=== PATIENT | male | born 1985 | race Caucasian/White ===

== ENCOUNTER 2020-11-17 18:06 | Emergency (ER) | payer BC ==
[2020-11-17] MEDS ORDERED: MORPHINE SULFATE 4 MG INJ IV ONE ×2 (18:31→20:16)
[2020-11-17] MEDS ORDERED: Sodium Chloride 0.9% 1000 ML 1,000 ML IV STA (18:32)
[2020-11-17] MEDS ORDERED: Sodium Chloride 0.9% 1000 ML 1,000 ML ONE ×2 (18:39→20:00)
[2020-11-17] MEDS ORDERED: MORPHINE SULFATE 4 MG INJ ONE ×2 (18:39→20:10)
[2020-11-17 19:28] LABS: Absolute Neutrophil Ct (ANC) 7.71 (1.4-6.9); BASOPHIL % 0.3 % (0.0-0.4); Basophil (Absolute #) 0.03 (0-0.4); Eosinophil % 1.3 % (0.00-5.0); Eosinophil (Absolute #) 0.15 (0-0.5); Hematocrit 42.6 % (42-50); Hemoglobin 14.5 gm/dl (12.5-18.0); Lymphocytes % 19.4 % (24.0-44.0); Mean Cell Volume 89.9 fl (78-100); Mean Corpuscular Hemoglobin 30.6 pg (26-32); Mean Platelet Volume 10.1 fl (7.5-11.0); Monocyte (Absolute #) 1.23 (0.0-1.3); Monocytes % 10.9 % (0.0-12.0); Neutrophil % 68.1 % (36.0-66.0); Platelet Count 288 K/mm3 (150-450); Red Blood Count 4.74 M/mm3 (4.1-5.6); Red Cell Distribution Width 13.4 % (11.5-14.0); White Blood Count 11.3 K/mm3 (4.0-10.5)
[2020-11-17 19:33] LABS: ALBUMIN 3.9 g/dL (3.5-5.0); ALKALINE PHOSPHATASE 102 U/L (38-126); ANION GAP 11.7 MEQ/L (5-15); BLOOD UREA NITROGEN 7 mg/dL (9-20); CHLORIDE 104 mmol/L (98-107); Calcium 8.8 mg/dL (8.4-10.2); Carbon Dioxide 27 mmol/L (22-30); Creatinine 1 0.63 mg/dL (0.66-1.25); EST GLOMERULAR FILTRATION RATE > 60.0 ML/MIN; Glucose 90 mg/dL (74-106); LIPASE 94 U/L (23-300); SGOT/AST 30 U/L (17-59); SGPT/ALT 32 U/L (0-50); SODIUM 140 mmol/L (137-145); Total Protein 6.7 g/dL (6.3-8.2)
[2020-11-17] MEDS ORDERED: POTASSIUM CHLORIDE 20 mEq IN WATER 100ML 20 MEQ/100 ML BAG IV SCH (19:45)
[2020-11-17] MEDS ORDERED: POTASSIUM CHLORIDE 20 mEq IN WATER 100ML 200 ML IV ONE (19:57)
[2020-11-17] MEDS ORDERED: Sodium Chloride 0.9% 1000 ML 1,000 ML IV SCH (20:00)
[2020-11-17 20:20] LABS: Appearance SLIGHTLY CLOUDY (CLEAR); Bacteria RARE /HPF (NEGATIVE); Bilirubin NEGATIVE (NEGATIVE); Blood LARGE Ery/ul (0-5); Epithelial Cells RARE /HPF (FEW); Glucose NEGATIVE (NEGATIVE); Ketones NEGATIVE (NEGATIVE); Leukocyte Esterase NEGATIVE (NEGATIVE); Mucus SLIGHT /HPF (NEGATIVE); Nitrite NEGATIVE (NEGATIVE); Protein,Urine Dip 30 (Negative); RBC >101 /HPF (0-2); Specific Gravity 1.008 (1.005-1.025); Urobilinogen NEGATIVE mg/dL (0-1)
--- NOTE | 2020-11-17 21:36 | ERPHSYRPT ---
- History of Present Illness Patient Subjective Stated Complaint: Pt states that he got a piece of metal in his abdomen a couple of weeks ago and then today around noon he suddenly had pain in his abdomen that radiated to his groin and to his back Triage Nursing Assessment: Pt brought to the ER by his , hypertensive, rates pain in left lower quadrant/right groin/right back as 6/10, pulses normal, skin n/w/d, reports having blood in stool Allergies/Adverse Reactions: diphenhydramine [From Benadryl] Allergy (Verified 11/17/20 18:28) Home Medications: Phentermine HCl [Adipex-P] 37.5 mg PO DAILY 11/17/20 [History] Travel Risk - International Travel Have you traveled outside of the country in past 3 weeks: No - Coronavirus Screening Are you exhibiting any of the following symptoms?: No Close contact with a COVID-19 positive Pt in past 14-21 Days: No - Vaccine Status Have you recieved a Covid-19 vaccination: No - Review of Systems Constitutional: No Symptoms, No Fever, No Chills Eyes: No Symptoms Ears, Nose, & Throat: No Symptoms Respiratory: No Symptoms, No Cough, No Dyspnea Cardiac: No Symptoms, No Chest Pain, No Edema, No Syncope Abdominal/Gastrointestinal: No Symptoms, No Abdominal Pain, No Nausea, No Vomiting, No Diarrhea Genitourinary Symptoms: No Symptoms, No Dysuria Musculoskeletal: No Symptoms, No Back Pain, No Neck Pain Skin: No Symptoms, No Rash Neurological: No Symptoms, No Dizziness, No Focal Weakness, No Sensory Changes Psychological: No Symptoms Endocrine: No Symptoms Hematologic/Lymphatic: No Symptoms Immunological/Allergic: No Symptoms All Other Systems: Reviewed and Negative - Past Medical History Pertinent Past Medical History: Yes GI Medical History: GERD - Past Surgical History Past Surgical History: Yes Gastrointestinal: Cholecystectomy, Hernia Repair Musculoskeletal: Joint Replacement, Orthopedic Surgery Male Surgical History: Vasectomy Other Surgical History: gastric bypass - Social History Smoking Status: Never smoker Exposure to second hand smoke: No Patient Lives Alone: No - Nursing Vital Signs Nursing Vital Signs: Initial Vital Signs Temperature 98.1 F 11/17/20 18:17 Pulse Rate 67 11/17/20 18:17 Blood Pressure 170/96 11/17/20 18:17 O2 Sat by Pulse Oximetry 93 L 11/17/20 18:17 Pain Scale Pain Intensity 6 - Physical Exam General Appearance: no apparent distress, alert Eye Exam: PERRL/EOMI, eyes nml inspection Ears, Nose, Throat Exam: normal ENT inspection, pharynx normal, moist mucous membranes Neck Exam: normal inspection, non-tender, supple, full range of motion Respiratory Exam: normal breath sounds, lungs clear, No respiratory distress Cardiovascular Exam: regular rate/rhythm, normal heart sounds Gastrointestinal/Abdomen Exam: soft, other (Pain in the right flank into the right groin area. There is a palpable foreign body at the surface likely subcutaneous area just right of the umbilicus. Patient is planning on seeing a general surgeon for further evaluation of this foreign body. No signs of abdominal infection.), No tenderness, No mass Back Exam: normal inspection, normal range of motion, No CVA tenderness, No vertebral tenderness Extremity Exam: normal inspection, normal range of motion, pelvis stable Neurologic Exam: alert, oriented x 3, cooperative, normal mood/affect, nml cerebellar function, sensation nml, No motor deficits Skin Exam: normal color, warm, dry Lymphatic Exam: No adenopathy SpO2 Interpretation: normal SpO2: 97 O2 Delivery: Room Air - Course Nursing assessment & vital signs reviewed: Yes - CT Exams Abdomen/Pelvis CT Interpretation: Tele-radiologist Report (No comparisons. Normal appendix. 2 mm right mid ureteral stone at L4 level. Mild hydronephrosis. Remaining abdomen pelvis negative.) Ordered Tests: Active Orders 24 hr Category Date Time Status IV Insertion STAT Care 11/17/20 19:23 Active ABDOMEN AND PELVIS W CONTRAST [CT] Stat Exams 11/17/20 18:33 Taken CBC W DIFF Stat Lab 11/17/20 19:23 Completed CMP Stat Lab 11/17/20 18:35 Completed CULTURE,URINE Stat Lab 11/17/20 20:16 Received LIPASE Stat Lab 11/17/20 18:35 Completed TROPONIN Q3H Lab 11/17/20 18:35 Completed TROPONIN Q3H Lab 11/17/20 22:30 Ordered TROPONIN Q3H Lab 11/18/20 01:30 Ordered TROPONIN Q3H Lab 11/18/20 04:30 Ordered TROPONIN Q3H Lab 11/18/20 07:30 Ordered UA W/RFX UR CULTURE Stat Lab 11/17/20 20:16 Completed Medication Summary Generic Name Dose Route Start Last Admin Trade Name Freq PRN Reason Stop Dose Admin Potassium Chloride 20 meq in 100 mls @ 50 mls/hr 11/17/20 19:45 11/17/20 20:03 Potassium Chloride 20 Meq In Water 100ml IV 11/17/20 23:44 50 mls/hr Q2H TARA Administration Sodium Chloride 1,000 mls @ 200 mls/hr 11/17/20 20:00 11/17/20 20:03 Sodium Chloride 0.9% 1000 Ml IV 12/17/20 19:59 200 mls/hr .Q5H TARA Administration Discontinued Medications Generic Name Dose Route Start Last Admin Trade Name Isaiah PRN Reason Stop Dose Admin Sodium Chloride 1,000 mls @ 999 mls/hr 11/17/20 18:32 11/17/20 19:42 Sodium Chloride 0.9% 1000 Ml IV 11/17/20 19:32 Infused .Q1H1M STA Infusion Sodium Chloride Confirm 11/17/20 18:39 Sodium Chloride 0.9% 1000 Ml Administered 11/17/20 18:40 Dose 1,000 mls @ ud .ROUTE .STK-MED ONE Ketorolac Tromethamine 30 mg 11/17/20 21:37 11/17/20 21:39 Toradol 30 Mg Injection IV 11/17/20 21:38 30 mg STAT ONE Administration Ketorolac Tromethamine Confirm 11/17/20 21:37 Toradol 30 Mg Injection Administered 11/17/20 21:38 Dose 30 mg .ROUTE .STK-MED ONE Morphine Sulfate 4 mg 11/17/20 18:31 11/17/20 18:41 Morphine Sulfate 4 Mg Inj IV 11/17/20 18:32 4 mg STAT ONE Administration Morphine Sulfate Confirm 11/17/20 18:39 Morphine Sulfate 4 Mg Inj Administered 11/17/20 18:40 Dose 4 mg .ROUTE .STK-MED ONE Morphine Sulfate Confirm 11/17/20 20:10 Morphine Sulfate 4 Mg Inj Administered 11/17/20 20:11 Dose 4 mg .ROUTE .STK-MED ONE Morphine Sulfate 4 mg 11/17/20 20:16 11/17/20 20:17 Morphine Sulfate 4 Mg Inj IV 11/17/20 20:17 4 mg STAT ONE Administration Potassium Chloride 40 meq 11/17/20 21:37 11/17/20 21:39 Klor Con 10 Meq PO 11/17/20 21:38 40 meq STAT ONE Administration Potassium Chloride Confirm 11/17/20 21:37 Klor Con 10 Meq Administered 11/17/20 21:38 Dose 40 meq PO .STK-MED ONE Lab/Rad Data: Laboratory Result Diagrams 11/17/20 19:23 11/17/20 18:35 Laboratory Results 11/17/20 11/17/20 11/17/20 Range/Units 20:16 19:23 18:35 WBC 11.3 H (4.0-10.5) K/mm3 RBC 4.74 (4.1-5.6) M/mm3 Hgb 14.5 (12.5-18.0) gm/dl Hct 42.6 (42-50) % MCV 89.9 (78-100) fl MCH 30.6 (26-32) pg MCHC 34.0 (32-36) g/dl RDW 13.4 (11.5-14.0) % Plt Count 288 (150-450) K/mm3 MPV 10.1 (7.5-11.0) fl Gran % 68.1 H (36.0-66.0) % Eos # (Auto) 0.15 (0-0.5) Absolute Lymphs (auto) 2.20 (1.0-4.6) Absolute Monos (auto) 1.23 (0.0-1.3) Lymphocytes % 19.4 L (24.0-44.0) % Monocytes % 10.9 (0.0-12.0) % Eosinophils % 1.3 (0.00-5.0) % Basophils % 0.3 (0.0-0.4) % Absolute Granulocytes 7.71 H (1.4-6.9) Basophils # 0.03 (0-0.4) Sodium (137-145) mmol/L Potassium (3.5-5.1) mmol/L Chloride (98-107) mmol/L Carbon Dioxide (22-30) mmol/L Anion Gap (5-15) MEQ/L BUN (9-20) mg/dL Creatinine (0.66-1.25) mg/dL Estimated GFR ML/MIN Glucose (74-106) mg/dL Calcium (8.4-10.2) mg/dL Total Bilirubin (0.2-1.3) mg/dL AST (17-59) U/L ALT (0-50) U/L Alkaline Phosphatase (38-126) U/L Troponin I < 0.012 (0.000-0.034) ng/mL Serum Total Protein (6.3-8.2) g/dL Albumin (3.5-5.0) g/dL Lipase (23-300) U/L Urine Color YELLOW (YELLOW) Urine Appearance SLIGHTLY CLOUDY (CLEAR) Urine pH 6.0 (5-6) Ur Specific Thornton 1.008 (1.005-1.025) Urine Protein 30 (Negative) Urine Ketones NEGATIVE (NEGATIVE) Urine Blood LARGE (0-5) Robert/ul Urine Nitrite NEGATIVE (NEGATIVE) Urine Bilirubin NEGATIVE (NEGATIVE) Urine Urobilinogen NEGATIVE (0-1) mg/dL Ur Leukocyte Esterase NEGATIVE (NEGATIVE) Urine WBC (Auto) 6-10 (0-5) /HPF Urine RBC (Auto) >101 (0-2) /HPF U Epithel Cells (Auto) RARE (FEW) /HPF Urine Bacteria (Auto) RARE (NEGATIVE) /HPF Calcium Oxalate Crystal 3-5 (NEGATIVE) /HPF Urine Mucus (Auto) SLIGHT (NEGATIVE) /HPF Urine Culture Reflexed YES (NO) Urine Glucose NEGATIVE (NEGATIVE) mg/dL 11/17/20 Range/Units 18:35 WBC (4.0-10.5) K/mm3 RBC (4.1-5.6) M/mm3 Hgb (12.5-18.0) gm/dl Hct (42-50) % MCV (78-100) fl MCH (26-32) pg MCHC (32-36) g/dl RDW (11.5-14.0) % Plt Count (150-450) K/mm3 MPV (7.5-11.0) fl Gran % (36.0-66.0) % Eos # (Auto) (0-0.5) Absolute Lymphs (auto) (1.0-4.6) Absolute Monos (auto) (0.0-1.3) Lymphocytes % (24.0-44.0) % Monocytes % (0.0-12.0) % Eosinophils % (0.00-5.0) % Basophils % (0.0-0.4) % Absolute Granulocytes (1.4-6.9) Basophils # (0-0.4) Sodium 140 (137-145) mmol/L Potassium 3.0 L* (3.5-5.1) mmol/L Chloride 104 (98-107) mmol/L Carbon Dioxide 27 (22-30) mmol/L Anion Gap 11.7 (5-15) MEQ/L BUN 7 L (9-20) mg/dL Creatinine 0.63 L (0.66-1.25) mg/dL Estimated GFR > 60.0 ML/MIN Glucose 90 (74-106) mg/dL Calcium 8.8 (8.4-10.2) mg/dL Total Bilirubin 0.60 (0.2-1.3) mg/dL AST 30 (17-59) U/L ALT 32 (0-50) U/L Alkaline Phosphatase 102 (38-126) U/L Troponin I (0.000-0.034) ng/mL Serum Total Protein 6.7 (6.3-8.2) g/dL Albumin 3.9 (3.5-5.0) g/dL Lipase 94 (23-300) U/L Urine Color (YELLOW) Urine Appearance (CLEAR) Urine pH (5-6) Ur Specific Thornton (1.005-1.025) Urine Protein (Negative) Urine Ketones (NEGATIVE) Urine Blood (0-5) Robert/ul Urine Nitrite (NEGATIVE) Urine Bilirubin (NEGATIVE) Urine Urobilinogen (0-1) mg/dL Ur Leukocyte Esterase (NEGATIVE) Urine WBC (Auto) (0-5) /HPF Urine RBC (Auto) (0-2) /HPF U Epithel Cells (Auto) (FEW) /HPF Urine Bacteria (Auto) (NEGATIVE) /HPF Calcium Oxalate Crystal (NEGATIVE) /HPF Urine Mucus (Auto) (NEGATIVE) /HPF Urine Culture Reflexed (NO) Urine Glucose (NEGATIVE) mg/dL - Progress Progress: improved Progress Note: Work-up reveals a mild hypokalemia. Potassium replacement administered. Pain well controlled at this time. CT reveals a small 2 mm ureteral lithiasis. There is blood, microscopic hematuria and UA. No poly UTI. However urine culture pending. Patient referred to urology Dr. Saleh. Patient will be discharged home. A prescription for Flomax and Toradol was provided to patient's pharmacy. Patient was given apparatus to screen urine at home. Patient states he is ready for discharge. He voices no other complaints or concerns at this time. Portions of this note were created with voice recognition technology. There may be grammatical, spelling, punctuation or sound alike errors 11/17/20 21:52 11/17/20 21:54 Counseled pt/family regarding: lab results, diagnosis, need for follow-up, rad results - Departure Departure Disposition: Home Clinical Impression: Ureterolithiasis, Hydronephrosis, Renal colic on right side Condition: Stable Critical Care Time: No Referrals: ASHLEY DEAN [Primary Care Provider] - GLENN SALEH [COURTESY STAFF] - Additional Instructions: Discharge/Care Plan VISH JRTERA KISER was seen on 11/17/20 in the Emergency Room. The patient was counseled regarding Diagnosis,Lab results, Imaging studies, need for follow up and when to return to the Emergency Room. Prescriptions given: Discharge Note I have spoken with the patient and/or caregivers. I have explained the patient's condition, diagnosis and treatment plan based on the information available to me at this time. I have answered the patient's and/or caregiver's questions and addressed any concerns. The patient and/or caregivers have as good understanding of the patient's diagnosis, condition and treatment plan as can be expected at this point. The vital signs have been stable. The patient's condition is stable and appropriate for discharge from the emergency department. The patient will pursue further outpatient evaluation with the primary care physician or other designated or consulting physician as outlined in the discharge instructions. The patient and/or caregivers are agreeable to this plan of care and follow-up instructions have been explained in detail. The patient and/or caregivers have received these instruction. The patient/and or caregivers are aware that any significant change in condition or worsening of symptoms should prompt an immediate return to this or the closest emergency department or call 911. Prescriptions: Tamsulosin HCl 0.4 mg [Flomax 0.4 MG] 0.4 mg PO DAILY 14 Days #14 cap Ketorolac Tromethamine [Toradol] 10 mg PO TID 5 Days #15 tablet
[2020-11-17] MEDS ORDERED: TORAdol 30 mg Injection IV ONE (21:37)
[2020-11-17] MEDS ORDERED: TORAdol 30 mg Injection ONE (21:37)
[2020-11-17] MEDS ORDERED: Klor Con 10 MEQ PO ONE ×2 (21:37)
[2020-11-17 22:03] VITALS: BP 151/97; PULSE 68; O2SAT 96
--- NOTE | 2020-11-18 08:45 | XRAY ---
Indication: Right lower quadrant pain, nausea, and rectal bleeding. Multiple contiguous has images obtained through the abdomen and pelvis using 80 cc Isovue 370 contrast. Comparison: None Lung bases demonstrates minimal subsegmental atelectasis/scarring. No infiltrate or effusion. Heart not enlarged. There has been gastric bypass surgery and cholecystectomy. Noncontrasted stomach and bowel loops nonobstructed. Normal appendix. Right mid ureter demonstrates 1-2 mm calculus, approximately L4 level. Proximal right ureter is mildly prominent and there is mild hydronephrosis consistent with partial obstructive uropathy. No free fluid/air. Remaining liver, pancreas, spleen, adrenal glands, kidneys, ureters, bladder, and aorta are unremarkable. No pathologic retroperitoneal lymphadenopathy. Osseous structures intact with mild degenerative changes throughout the thoracolumbar spine. No ventral or inguinal hernias. Impression: 1. 1-2 mm right mid ureteral calculus producing partial obstruction. 2. Remaining CT abdomen/pelvis with contrast exam is negative.
== END 2020-11-17 22:03 | disposition home or self-care (01) ==
LOC: ED 18:06
DX: N23 Unspecified renal colic (principal)
CPT/HCPCS: 36000; 36415; 74177; 80053; 81001; 83690; 84484; 85025; 87086; 96374; 96375; 96376; 99284; J1885; J2270; J3480; A9270-GY

== ENCOUNTER 2022-03-06 06:09 | Day surgery (SDC) | payer BC ==
[2022-03-06] MEDS ORDERED: Lactated Ringers 1,000 ML IV SCH (06:30)
[2022-03-06] MEDS ORDERED: Versed 2 MG/2 ML Injection ONE (07:23)
[2022-03-06] MEDS ORDERED: DIPRIVAN 200 MG/20 ML IV ONE ×2 (07:23→07:52)
[2022-03-06] MEDS ORDERED: Xylocaine-Mpf 2% 5 Ml Vial ONE (07:23)
[2022-03-06 08:32] VITALS: BP 133/91; PULSE 60; O2SAT 96
--- NOTE | 2022-03-06 14:07 | OP ---
SURGERY DATE/TIME: 03/06/2022 0724 PREOPERATIVE DIAGNOSIS: Left lower quadrant abdominal pain. POSTOPERATIVE DIAGNOSIS: Normal colon. PROCEDURE: Colonoscopy. SURGEON: Dr. Miguelito Palacios. ANESTHESIA: MAC. Medications given by anesthesia department. HISTORY: The patient is a 36-year-old white male patient presenting now for colonoscopic evaluation for left lower quadrant abdominal pain. The patient is felt the need to have endoscopic evaluation. He was appraised of the risks of the procedure including the risk of perforation, phlebitis, untoward reaction to medication, bleeding and missed lesions. The patient verbalized his understanding and desired to have the procedure performed. DESCRIPTION OF PROCEDURE: The patient was given the medications by the anesthesia department. He had continuous pulse oximetry, ECG monitoring and intermittent blood pressure monitoring during the examination. He was placed in the left lateral decubitus position. A digital rectal examination was performed and revealed normal anal sphincter tone, no masses and normal prostate. The flexible Olympus pediatric colonoscope was used to intubate the rectum. A view of the colon was developed sequentially to the cecum. Upon insertion and withdrawal, including a retroflex view in the rectum, no mucosal lesions were encountered. The scope was removed from the patient who tolerated the procedure well and was sent back to outpatient recovery in good condition. The prep was noted to be fair.
== END 2022-03-06 08:43 | disposition home or self-care (01) ==
LOC: SDC 06:09
PROVIDERS: ATTEND Family Medicine
DX: R10.32 Left lower quadrant pain (principal)
CPT/HCPCS: J2250; J2704